=== PATIENT | female | born 1995 | race Caucasian/White ===

== ENCOUNTER 2017-05-11 12:06 | Day surgery (SDC) | payer BC ==
[~2017-05-11] VITALS: Ht 154.9 cm; Wt 64.1 kg
[2017-05-11] VITALS (9 sets, daily range): BP systolic 103–137; BP diastolic 50–75
[2017-05-11 12:51] LABS: HCG URINE NEGATIVE (NEGATIVE)
[2017-05-11 12:56] LABS: APPEARANCE CLOUDY (CLEAR); BACTERIA MANY /hpf (NONE SEEN); BILIRUBIN NEGATIVE (NEGATIVE); COLOR YELLOW (YELLOW); EPITHELIAL CELLS 25-50 /hpf (0-5); GLUCOSE NEGATIVE (NEGATIVE); KETONE NEGATIVE (NEGATIVE); MUCUS >1+ /lpf (NONE SEEN); NITRITE NEGATIVE (NEGATIVE); PROTEIN TRACE mg/dL (NEGATIVE); UROBILINOGEN NORMAL (NORMAL)
[2017-05-11 12:57] LABS: BASOPHILS 0.4 % (0-2); EOSINOPHILS 0.1 % (0-7); HEMATOCRIT 43.3 % (36.0-48.0); HEMOGLOBIN 14.7 g/dL (12-16); IMMATURE GRANULOCYTES 0.1 % (0-5); LYMPHOCYTES 11.2 % (15-50); MCHC 33.9 g/dL (31.0-37.0); MCV 91.4 fL (80.0-100.0); MEAN PLATELET VOLUME 10.7 fL (7.4-10.4); MONOCYTES 7.2 % (2-11); PLATELET COUNT 166 10x3/uL (130-400); RBC 4.74 10x6/uL (4.00-5.40); RDW 12.6 % (11.5-14.5)
[2017-05-11 13:18] LABS: ALBUMIN 3.9 g/dL (3.4-5.0); ALKALINE PHOSPHATASE 107 U/L (46-116); ALT (SGPT) 16 U/L (10-68); AMYLASE - SERUM 36 U/L (25-115); BILIRUBIN - TOTAL 0.41 mg/dL (0.2-1.3); CALC OSMOLALITY 279 mosm/kg (275-300); CALCIUM 9.1 mg/dL (8.5-10.1); CARBON DIOXIDE 28.7 mmol/L (21.0-32.0); CHLORIDE - SERUM 101 mmol/L (98-107); CREATININE - SERUM 0.9 mg/dL (0.6-1.3); GLUCOSE 95 mg/dL (74-106); LIPASE 118 U/L (73-393); PROTEIN - SERUM 7.7 g/dL (6.4-8.2); SODIUM 140 mmol/L (136-145); UREA NITROGEN 14 mg/dL (7-18); eGFR NON AFRICAN AMERICAN 83 mL/min (90-120)
[2017-05-11 13:39] LABS: HCG SERUM NEGATIVE (NEGATIVE)
--- NOTE | 2017-05-11 18:39 | NUR ---
RECEIVED TO ROOM 2229 VAIA BED FROM PACU. A/O X3. 3 SMALL INSERTION SITES TO ABDOMEN DRY AND INTACT. SIGNIFICANT OTHER AT BEDSIDE. DENIES NEEDS.
[2017-05-12 01:03] VITALS: BP 93/43
[2017-05-12 02:52] VITALS: Ht 154.9 cm; Wt 64.1 kg
[2017-05-12 05:24] VITALS: BP 88/44
[2017-05-12 05:56] LABS: BASOPHILS 0.2 % (0-2); EOSINOPHILS 0.2 % (0-7); HEMATOCRIT 37.1 % (36.0-48.0); HEMOGLOBIN 12.2 g/dL (12-16); LYMPHOCYTES 11.8 % (15-50); MCH 30.3 pg (26.0-34.0); MCHC 32.9 g/dL (31.0-37.0); MCV 92.1 fL (80.0-100.0); MONOCYTES 9.1 % (2-11); NEUTROPHILS 78.7 % (40-80); PLATELET COUNT 193 10x3/uL (130-400); RBC 4.03 10x6/uL (4.00-5.40); RDW 12.6 % (11.5-14.5)
--- NOTE | 2017-05-12 07:00 | NUR ---
REPORT RECIEVED ASSUMED CARE. PATIENT IN BED WITH IV INTACT. NO COMPLAINTS. CALL LIGHT WITHIN REACH.
[2017-05-12 08:26] VITALS: BP 97/60
[2017-05-12] MEDS ORDERED: HYDROCODONE-APA1 TAB PO (09:13)
--- NOTE | 2017-05-12 09:14 | OP ---
PATIENT NAME: ARMANDO SANCHEZ MEDICAL RECORD: [id number] :94 LOCATION:[id number] ADMISSION DATE:05/11/17 SURGEON: JOSE TIWARI MD DATE OF OPERATION: 05/11/2017 PREOPERATIVE DIAGNOSIS: Acute appendicitis with localized peritonitis. POSTOPERATIVE DIAGNOSIS: Acute appendicitis with localized peritonitis. PROCEDURE: Laparoscopic appendectomy. SURGEON: Jose Tiwari MD REPORT OF PROCEDURE: The patient's abdomen was prepped and draped in sterile fashion. A skin incision was made on the superior aspect of the umbilicus, 0 Vicryls were placed in the fascia bilaterally and the fascia was incised with a 15 blade. I then bluntly entered the peritoneal cavity and placed a 12-mm Humberto port. Under direct visualization, a 5 mm trocar was placed in the left lower quadrant and another was placed in the suprapubic region. There were some inflammatory adhesions present in the right lower quadrant. These were teased down revealing inflamed appendix with the tip appendicitis. The base of the appendix appeared normal. The window was opened up between the base of the appendix and the mesoappendix. The base of the appendix was transected with a 45 blue load Endo-VENU stapler. The mesentery was then taken down and 45 white load Endo-VENU stapler was used to take down the mesoappendix. The appendix was placed into an Endo Catch bag. We then irrigated out the right lower quadrant and assured there was no sign of any bleeding. At this point, the ports and insufflation were then removed and the appendix was taken out through the umbilicus. The umbilical fascia was closed with interrupted 0 Vicryl times 3. The wounds were irrigated out with normal saline and infused with 10 mL of 0.25% Marcaine with epinephrine. The skin incisions were all closed with subcutaneous 5-0 Monocryl and dressed appropriately. COMPLICATIONS: None. CONDITION: Stable. ANESTHESIA: General endotracheal and local. BLOOD LOSS: Minimal. TRANSINT:[id number] Voice Confirmation ID: [id number] DOCUMENT ID: [id number] JOSE TIWARI MD at 0914 CC: [id number] DICTATION DATE: 05/11/17 170 FRONT OFFICE DIRECTOR: 05/11/17 1743 ADM IN [place] [id number] [place] [address]
[2017-05-12] MEDS ORDERED: BACTRIM DS TABL1 TAB PO (09:23)
--- NOTE | 2017-05-12 11:50 | NUR ---
PATIENT IV REMOVED WITH CATH TIP INTACT. EXPLAINED TO PATIENT SHE COULD GO AHEAD AND GET DRESSED FOR DC. VERBALIZED UNDERSTANDING. CALL LIGHT WITHIN REACH.
[2017-05-12 13:03] VITALS: BP 92/52
--- NOTE | 2017-05-12 13:50 | NUR ---
PATIENT RECIEVED DC INSTRUCTIONS AND PRESCRIPTIONS. VERBALIZED UNDERSTANDING. NO QUESTIONS AT THIS TIME. FAMILY AT BEDSIDE. CALL LIGHT WITHIN REACH.
== END 2017-05-12 14:54 | disposition home or self-care (01) ==
LOC: OBSVTIME → D.OPS 12:06 → D.ER 12:06 → EDSTATUS 14:00 → D.SDCHOLD 14:12 → OBSVTIME 14:12 → D.ER 14:12 → D.SDCHOLD 14:12 → D.MS 14:12 → D.SDCHOLD 18:36 → D.OPS 05-12 14:54 → D.MS 05-12 14:54
PROVIDERS: Family Medicine; Surgery
DX: K35.3 Acute appendicitis with localized peritonitis (principal); Z01.812 Encounter for preprocedural laboratory examination